=== PATIENT | female | born 1945 | race Caucasian/White ===

== ENCOUNTER → 2016-11-11 | Outpatient (CLI) | payer MEDICARE ==
[~2016-11-11] MED LIST: ACHD5005 PO; ASP81TEC PO; CALCIUM; DICY10CA26 PO; GLUCOSAMINE; HYDR1TAB PO; OMEG1CAP51 PO; ONDAN4ODT PO; SCP1.5TD TOP
--- NOTE | 2016-11-11 17:47 | Diagnostic Imaging Report ---
Bilateral screening mammogram 2D views with tomosynthesis. The current study was also evaluated with a Computer Aided Detection (CAD) system. INDICATION: Screening. No current complaints stated on the questionnaire. COMPARISON: 10/24/2015. FINDINGS: The breasts are composed of scattered fibroglandular densities. Post lumpectomy changes with multiple surgical clips are seen in the right periareolar region. Benign-appearing calcifications are noted. There is a stable nodule in the upper anterior aspect of the right breast which appears to have a fatty hilum suggestive of an intramammary lymph node. Allowing for technique and positional differences, no suspicious change is seen. IMPRESSION: No significant change. ACR BI-RADS Category 2: Benign findings. Result letter will be mailed to the patient. Note: At least 10% of breast cancer is not imaged by mammography. Dictated by: Dictated on workstation # [id number]
== END ==
LOC: RAD 09:54
PROVIDERS: ATTEND Internal Medicine
DX: Z12.31 Encounter for screening mammogram for malignant neoplasm of breast (principal)
CPT/HCPCS: 77067

== ENCOUNTER → 2017-05-21 | Outpatient (CLI) | payer MEDICARE | LOC: LAB 12:11 | PROVIDERS: ATTEND Internal Medicine | DX: I10 Essential (primary) hypertension (principal); R06.02 Shortness of breath; R07.89 Other chest pain | CPT/HCPCS: 36415; 83880; 84443; 84484 ==

== ENCOUNTER → 2018-03-15 | Outpatient (CLI) | payer MEDICARE | LOC: CARD 11:20 | PROVIDERS: ATTEND Internal Medicine | DX: R00.0 Tachycardia, unspecified (principal) | CPT/HCPCS: 93005 ==

== ENCOUNTER → 2018-04-15 | Outpatient (CLI) | payer MEDICARE | LOC: CARD 13:14 | PROVIDERS: ATTEND Internal Medicine | DX: R00.0 Tachycardia, unspecified (principal); R94.31 Abnormal electrocardiogram [ECG] [EKG] | CPT/HCPCS: 93306 ==

== ENCOUNTER → 2018-06-02 | Outpatient (CLI) | payer MEDICARE ==
--- NOTE | 2018-06-02 21:25 | Diagnostic Imaging Report ---
INDICATION: Routine screening. Comparison is made with prior mammogram from 11/11/2016 and 10/24/2015. 2-D and 3-D bilateral screening mammography was performed with CAD. The current study was also evaluated with a Computer Aided Detection (CAD) system. FINDINGS: Scattered fibroglandular densities are identified bilaterally. Postlumpectomy changes in the right breast again noted. Benign nodular densities in right breast are again seen and appear stable. No spiculated mass or malignant-appearing microcalcifications are seen. There are benign calcifications bilaterally. Axillae are unremarkable. IMPRESSION: No mammographic features suspicious for malignancy are identified. ACR BI-RADS Category 2: Benign findings. Result letter will be mailed to the patient. Note: At least 10% of breast cancer is not imaged by mammography. Dictated by: Dictated on workstation # [id number]
== END ==
LOC: RAD 10:22
PROVIDERS: ATTEND Internal Medicine
DX: Z12.31 Encounter for screening mammogram for malignant neoplasm of breast (principal)
CPT/HCPCS: 77067

== ENCOUNTER → 2018-06-03 | Outpatient (CLI) | payer MEDICARE ==
--- NOTE | 2018-06-03 15:39 | Diagnostic Imaging Report ---
INDICATION: Discoid lupus erythematosus. COMPARISON: None. FINDINGS: Single upright radiographic view of the abdomen was obtained. Multiple air-fluid levels are noted scattered throughout the abdomen, but appear to project along the expected course of the colon. Small bowel loops are otherwise nondistended. There is no large collection of free intraperitoneal air. No unexpected extraosseous calcifications or radiopaque foreign bodies are seen. Osseous structures show age-related degenerative changes. Included portions of the lung bases are clear. IMPRESSION: 1. Multiple air-fluid levels scattered throughout the abdomen. Again, these appear to follow along the course of the colon. Findings are nonspecific, but can be seen with diarrhea. 2. Otherwise, no convincing evidence of small bowel obstruction. Dictated by: Dictated on workstation # [id number]
--- NOTE | 2018-06-03 16:09 | Diagnostic Imaging Report ---
INDICATION: Lupus. FINDINGS: PA chest. Lungs are well aerated. There are no infiltrates. There are no findings to indicate granulomas or cavitary lesion. There are no hilar adenopathy. The heart is not enlarged. There is no pulmonary edema. No pneumothorax or pleural effusion. No bony abnormality. IMPRESSION: Normal PA chest. Dictated by: Dictated on workstation # [id number]
== END ==
LOC: RAD 15:06
PROVIDERS: ATTEND Nurse Practitioner Family
DX: L93.0 Discoid lupus erythematosus (principal); M32.9 Systemic lupus erythematosus, unspecified
CPT/HCPCS: 71045; 74018

== ENCOUNTER 2019-02-08 10:16 | Outpatient (CLI) | payer MEDICARE ==
[~2019-02-08] VITALS: Ht 155.3 cm; Wt 92.7 kg
[2019-02-08] MEDS ORDERED: METO-370 PO (12:35)
[2019-02-08] MEDS ORDERED: COLE1TAB PO (12:35)
[2019-02-08] MEDS ORDERED: MYCO500T34 PO (12:35)
[2019-02-08] MEDS ORDERED: METF-478 PO (12:35)
[2019-02-08] MEDS ORDERED: LISI-556 PO (12:35)
[2019-02-08] MEDS ORDERED: GLIM2TAB PO (12:35)
[2019-02-08] MEDS ORDERED: FLUC150T2 PO (12:35)
== END 2019-02-08 12:36 | disposition home or self-care (01) ==
LOC: PREOP 10:16
PROVIDERS: ATTEND Internal Medicine
DX: Z01.818 Encounter for other preprocedural examination (principal)

== ENCOUNTER 2019-02-11 09:05 | Day surgery (SDC) | payer MEDICARE ==
--- NOTE | 2019-02-09 06:14 | HISTORY AND PHYSICAL ---
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 Because of its association with malignancy, she is deemed to be of higher than average risk and her bleach range operator had requested colonoscopy. She was due for now screening as it has been 10 years since her first colonoscopy at which time she had one diminutive adenoma removed. She did develop some oral lesions and intertriginous erythematous eruption under both breasts and groin area. She was felt to have thrush by bleach range operator was initially given nystatin swish and swallow as well as cream. There was no benefit with this in regards to her intertriginous eruption, but the oral lesions have improved. She has been given a prolonged course of Diflucan that she is still on and they are holding her immune therapy. She does report some situational anxiety for which she takes half of her Xanax occasionally, but is not doing so on a regular basis. She denies abdominal pain, change in bowel habit and has noted no bright red blood per rectum or melena. Weight has been stable. She states that she has not been following as much of a diabetic diet as of late, but has not gained any weight. PHYSICAL EXAMINATION: GENERAL: Reveals pleasant overweight white female in no acute distress. VITAL SIGNS: Blood pressure 130/90. HEENT: Unremarkable except for erythematous rash involving predominantly the forehead and malar region of the face. She has some involvement of the sun exposed areas of the neck at the anterior and posterior. CHEST: Clear to auscultation. CARDIOVASCULAR: Reveals regular rate and rhythm without murmur, S3 or S4. ABDOMEN: Soft, supple without mass, organomegaly or tenderness. EXTREMITIES: Reveal no cyanosis, clubbing or edema. There is no pain to palpation over the thighs or upper arms. Gait is normal and strength is normal with no difficulty getting up down off the exam table. She does have erythematous eruptions under the breasts and groin area without satellite lesions. ASSESSMENT AND PLAN: 1. Hypertension, mild blood pressure elevation today. Discussed the importance of portion control to effect weight loss. We will not make any medication changes as it was just borderline elevated in the office. 2. The patient is being set up on 02/11 for screening colonoscopy. Prep instructions were given and questions were answered. 3. Dermatomyositis thus far without the myositic component with a typical rash. She will be seeing her bleach range operator and advised that she probably resume her autoimmune therapy. 4. Rash, most compatible with intertrigo. She is given hydrocortisone cream for lack of response to oral Diflucan and topical nystatin, a yeast unlikely does not have typical features or scale, but I would expect and it is symmetrical making tinea infection unlikely. 5. Situational anxiety. Continue p.r.n. low dose alprazolam. She will follow up next week in the office for Pap testing and FLAT FINISHER evaluation and we will plan on giving her flu shot at that time. Job ID: [id number] DocumentID: [id number] Dictated Date: 02/08/2019 09:22:15 Implementation Services Analyst Date: 02/08/2019 10:11:15 Dictated By: DINORA OCHOA MD
[~2019-02-11] VITALS: Ht 155.3 cm; Wt 92.7 kg
[2019-02-11] VITALS (13 sets, daily range): BP systolic 133–214; BP diastolic 52–93
[~2019-02-11 09:05] MED LIST changes: +COLE1TAB PO; +FLUC150T2 PO; +GLIM2TAB PO; +LISI-556 PO; +METF-478 PO; +METO-370 PO; +MYCO500T34 PO
[2019-02-11] MEDS ORDERED: D5 LR IV SOLUTION 1,000 ML IV STA (09:13)
[2019-02-11] MEDS ORDERED: fentaNYL INJECTION 100 MCG/2 ML AMP IVP ONE (09:15)
[2019-02-11] MEDS ORDERED: LIDOCAINE JELLY 2% 6 ML SYRINGE MM PRN (09:15)
[2019-02-11] MEDS ORDERED: D5 LR IV SOLUTION 1,000 ML IV ONE (09:23)
[2019-02-11] MEDS ORDERED: LIDOCAINE JELLY 2% 6 ML SYRINGE ONE (10:26)
[2019-02-11] MEDS ORDERED: fentaNYL INJECTION 100 MCG/2 ML AMP ONE ×2 (10:26→10:58)
[2019-02-11] MEDS ORDERED: MIDAZOLAM 5 MG/5 ML (VERSED) VIAL ONE (10:26)
--- NOTE | 2019-02-11 10:36 | Pre-Op Note & Conscious Sedat ---
Pre-Operative Progress Note H&P Reviewed The H&P was reviewed, patient examined and no changes noted. Date H&P Reviewed: Feb 11, 2019 Time H&P Reviewed: 10:10 Conscious Sedation Pre-Proced ASA Score 2 For ASA 3 and 4: Consider anesthesia and medical clearance. Also, for patients with a history of failed moderate sedation consider anesthesia. Airway Lungs Heart ASA score ASA 1: a normal healthy patient ASA 2: a patient with a mild systemic disease (mid diabetes, controlled hypertension, obesity ASA 3: a patient with a severe systemic disease that limits activity (angina, COPD, prior Myocardial infarction) ASA 4: a patient with an incapacitating disease that is a constant threat to life (CHF, renal failure) ASA 5: a moribund patient not expected to survive 24 hrs. (ruptured aneurysm) ASA 6: a declared brain- patient whose organs are being harvested. For emergent operations, add the letter E after the classification Mallampati Classification Grade 2 Sedation Plan Analgesia, Amnesia, Plan communicated to team members, Discussed options with patient/fam, Discussed risks with patient/fam The patient is an appropriate candidate to undergo the planned procedure, sedation, and anesthesia. The patient immediately re-assessed prior to indication. DINORA OCHOA MD Feb 11, 2019 10:36
[2019-02-11] MEDS: MIDAZOLAM 5 MG/5 ML (VERSED) VIAL IV PRN ×2 (10:38→10:50)
--- NOTE | 2019-02-12 00:18 | OPERATIVE REPORT ---
DATE OF SERVICE: COLONOSCOPY SUMMARY INDICATION FOR THE PROCEDURE: The patient underwent screening colonoscopy. She is deemed to be of higher than average risk due to recent diagnosis of dermatomyositis. The patient was placed in the left lateral decubitus position. Prior to undergoing colonoscopy, digital rectal evaluation was performed. Anal sphincter tone was normal and the perianal reflexes intact. No abnormalities, no additional inspection of anal canal or distal rectal vault. The colonoscope was then inserted into the rectum and under direct visualization advanced to the cecum. The cecum was identified by identification of the ileocecal valve and cecal strap. Photographic documentation was obtained. Careful inspection was made as the colonoscope was withdrawn. The patient did have an irritable bowel type response to air insufflation and colonic manipulation. Quality of the prep was good. FINDINGS: There was no evidence for internal or external hemorrhoids. The rectum, sigmoid colon, descending colon, splenic flexure, transverse colon, hepatic flexure, ascending colon and cecum were unremarkable with no evidence for neoplasia, diverticular disease or other abnormality. ASSESSMENT: Normal colonoscopy to the cecum. I discussed with the patient that we will obtain stool for occult blood. If it is positive, I will proceed with EGD evaluation. The patient currently denies any GI symptoms. Job ID: [id number] DocumentID: [id number] Dictated Date: 02/11/2019 16:51:06 Finish Repair Worker Date: 02/12/2019 00:17:18 Dictated By: DINORA OCHOA MD
== END 2019-02-11 12:00 | disposition home or self-care (01) ==
LOC: ENDO 09:05
PROVIDERS: ATTEND Internal Medicine
DX: Z12.11 Encounter for screening for malignant neoplasm of colon (principal); M33.90 Dermatopolymyositis, unspecified, organ involvement unspecified; I10 Essential (primary) hypertension; F41.8 Other specified anxiety disorders; Z88.8 Allergy status to other drugs, medicaments and biological substances; Z79.899 Other long term (current) drug therapy

== ENCOUNTER → 2019-06-20 | Outpatient (CLI) | payer MEDICARE ==
[~2019-06-20] MED LIST changes: -GLIM2TAB PO; +GLIM2TAB4 PO; -METO-370 PO; +METO50TA7 PO
--- NOTE | 2019-06-20 10:32 | Diagnostic Imaging Report ---
INDICATION: Routine screening. Comparison is made with prior mammogram from 06/02/2018 and 11/11/2016. 2-D and 3-D bilateral screening mammography was performed with CAD. Scattered fibroglandular densities are identified bilaterally. A post-therapeutic changes in the right breast are again noted. There are numerous benign-appearing nodular densities in the right breast which appear stable. There are benign calcifications bilaterally. No spiculated mass or malignant appearing microcalcifications are seen. Axillae are unremarkable. IMPRESSION: BI-RADS Category 2 No mammographic features suspicious for malignancy are identified. ACR BI-RADS Category 2: Benign findings. Result letter will be mailed to the patient. Note: At least 10% of breast cancer is not imaged by mammography. Dictated by: Dictated on workstation # [id number]
== END ==
LOC: RAD 09:11
PROVIDERS: ATTEND Internal Medicine
DX: Z12.31 Encounter for screening mammogram for malignant neoplasm of breast (principal)
CPT/HCPCS: 77067

== ENCOUNTER → 2019-10-18 | Outpatient (CLI) | payer MEDICARE ==
--- NOTE | 2019-10-18 18:22 | Diagnostic Imaging Report ---
INDICATION: Lupus. EXAMINATION: PA and lateral views of the chest. FINDINGS: The heart size and vascularity are normal. Lungs are clear. There is no effusion. There is no acute bony abnormality. IMPRESSION: No acute abnormality is seen. There is no change from 06/03/2018. Dictated by: Dictated on workstation # [id number]
== END ==
LOC: RAD 14:49
PROVIDERS: ATTEND Nurse Practitioner Family
DX: L93.0 Discoid lupus erythematosus (principal); B37.2 Candidiasis of skin and nail; L30.4 Erythema intertrigo
CPT/HCPCS: 71046

== ENCOUNTER → 2020-09-07 | Outpatient (CLI) | payer MEDICARE ==
[~2020-09-07] MED LIST changes: -LISI-556 PO; +LISI-729 PO
--- NOTE | 2020-09-07 17:24 | Diagnostic Imaging Report ---
INDICATION: Routine screening. Comparison is made with prior mammogram from 06/20/2019 and 06/02/2018. 2-D and 3-D bilateral screening mammography was performed with CAD. Scattered fibroglandular densities are identified bilaterally. Post-therapeutic changes in the right breast are noted. Nodular densities in the right breast appear stable. No spiculated mass or malignant appearing microcalcifications are seen. A benign calcification is present. Axillae are unremarkable. IMPRESSION: BI-RADS Category 2 No mammographic features suspicious for malignancy are identified. ACR BI-RADS Category 2: Benign findings. Result letter will be mailed to the patient. Note: At least 10% of breast cancer is not imaged by mammography. Dictated by: Dictated on workstation # [id number]
== END ==
LOC: RAD 09:30
PROVIDERS: ATTEND Nurse Practitioner Family
DX: Z12.31 Encounter for screening mammogram for malignant neoplasm of breast (principal)
CPT/HCPCS: 77063; 77067

== ENCOUNTER → 2021-12-05 | Outpatient (CLI) | payer MEDICARE ==
[~2021-12-05] MED LIST changes: -FLUC150T2 PO; +FLUC150T41 PO; -LISI-729 PO; +LISI5TAB20 PO
--- NOTE | 2021-12-05 16:08 | Diagnostic Imaging Report ---
Indication: Routine screening. Comparison is made with prior mammograms 09/07/2020 and 06/20/2019. 2-D and 3-D bilateral screening mammography was performed with CAD. Scattered fibroglandular densities are identified bilaterally. Post therapeutic changes with multiple surgical clips in the anterior right breast are again noted. The nodular densities in the right breast appear stable. Benign calcifications are noted. No spiculated mass or malignant appearing microcalcifications are seen. Axillae are unremarkable. IMPRESSION: BI-RADS Category 2 No mammographic features suspicious for malignancy are identified. ACR BI-RADS Category 2: Benign findings. Result letter will be mailed to the patient. Note: At least 10% of breast cancer is not imaged by mammography. Dictated by: Dictated on workstation # [id number]
== END ==
LOC: RAD 10:48
PROVIDERS: ATTEND Nurse Practitioner Family
DX: Z12.31 Encounter for screening mammogram for malignant neoplasm of breast (principal)
CPT/HCPCS: 77063; 77067

== ENCOUNTER → 2023-02-27 | Outpatient (CLI) | payer MEDICARE ==
--- NOTE | 2023-02-27 16:29 | Diagnostic Imaging Report ---
Indication: Routine screening. Comparison is made with prior mammograms from 12/14/2021 and 09/07/2020. 2-D and 3-D bilateral screening mammography was performed with CAD. Scattered fibroglandular densities are noted bilaterally. There are post therapeutic changes in the right breast with multiple surgical clips. Nodular densities in the right breast are stable. There are benign calcifications. No spiculated mass or malignant-appearing microcalcifications are identified. Axillae are unremarkable. IMPRESSION: BI-RADS Category 2. No mammographic features suspicious for malignancy are identified. ACR BI-RADS Category 2: Benign findings. Result letter will be mailed to the patient. Note: At least 10% of breast cancer is not imaged by mammography. Dictated by: Dictated on workstation # [id number]
== END ==
LOC: RAD 14:45
PROVIDERS: ATTEND Nurse Practitioner Family
DX: Z12.31 Encounter for screening mammogram for malignant neoplasm of breast (principal)
CPT/HCPCS: 77063; 77067